=== PATIENT | female | born 1995 | race Caucasian/White ===

== ENCOUNTER 2016-09-12 20:42 | Emergency (ER) | payer SELFPAY ==
[~2016-09-12] VITALS: Ht 162.6 cm; Wt 47.0 kg
[2016-09-12 20:44] VITALS: BP 135/86; PULSE 80; RESP 16; TEMP 97.2; O2SAT 98
--- NOTE | 2016-09-12 21:26 | PD ---
HPI Chief Complaint: Pain: Acute or Chronic Time Seen by Provider: 21:23 Travel History International Travel<30 days: No Contact w/Intl Traveler<30days: No Traveled to known affect area: No History of Present Illness HPI 21-year-old female presents to emergency department with complains of right sided rib pain. She states that her right ribs keep popping out of place now for the past 4 years. She states that she has chronic right rib pain. She states that her ribs have been out of place for months to years. She states that her pain is gotten worse in the last week or so. She does not have a doctor that she follows up with. She denies any fever chills. Pain is worse with taking a deep breath or cough. PFSH Past Medical History Asthma: Yes Diminished Hearing: No Immunizations Current: Yes Tetanus Vaccination: < 5 Years ?: Not LMP: 09/03/2016 : 1 Para: 0 Miscarriage: 0 : 0 Past Surgical History Surgical History: No Previous Surgery Social History Alcohol Use: No Tobacco Use: No Substance Use: No Allergies-Medications (Allergen,Severity, Reaction): Coded Allergies: Benadryl (Verified Allergy, Severe, HIVES, 09/12/16) Uncoded Allergies: THERAFLU (Allergy, Intermediate, "WATER BUBBLES" ON SKIN, 09/12/16) Reported Meds & Prescriptions Reported Meds & Active Scripts Active No Active Prescriptions or Reported Medications Review of Systems Except as stated in HPI: all other systems reviewed are Neg General / Constitutional: No: Fever, Chills Eyes: Positive: Blurred Vision, No: Pain HENT: Positive: Headaches, Earache Cardiovascular: Positive: Chest Pain or Discomfort, No: Tachycardia Respiratory: Positive: Pleuritic Pain, No: Cough, Shortness of Breath Gastrointestinal: No: Nausea, Vomiting Genitourinary: No: Dysuria, Hematuria Musculoskeletal: Positive: Pain, No: Edema Skin: No Rash, No Itching Physical Exam Narrative GENERAL: Well-developed, well-nourished in no acute distress. Nontoxic appearing. HEAD: Normocephalic, atraumatic. EYES: Pupils equal round and reactive. Extraocular motions intact. No scleral icterus. No injection or drainage. ENT: TMs clear without erythema. The external auditory canals clear. Nose: clear . Posterior pharynx is pink and moist. No tonsillar edema or exudate. Uvula midline. Airway patent. NECK: Trachea midline.Supple, nontender, moves head freely. No central bony tenderness or spasm. CARDIOVASCULAR: Regular rate and rhythm without murmurs, gallops, or rubs. CHEST: Tender right anterior lower axillary ribs without deformity or crepitance. No retractions or use of accessory muscles. RESPIRATORY: Clear to auscultation. Breath sounds equal bilaterally. No wheezes , rales, or rhonchi. GASTROINTESTINAL: Abdomen soft, non-tender, nondistended. No hepato-splenomegaly , or palpable masses. No guarding. EXTREMITIES: No clubbing, cyanosis, or edema. No joint tenderness, effusion, or edema noted. BACK: Nontender without deformity or crepitance. No flank tenderness. Data Data Last Documented VS Vital Signs Date Time Temp Pulse Resp B/P Pulse Ox O2 Delivery O2 Flow Rate FiO2 09/12/16 20:44 97.2 80 16 135/86 98 Room Air Orders Ribs, Uni (W/Exp Cxr-Min 3vw) (09/12/16 21:22) [facility] Medical Decision Making Medical Screen Exam Complete: Yes Emergency Medical Condition: Yes Medical Record Reviewed: Yes Interpretation(s) Last 24 hours Impressions Ribs X-Ray 09/12/162121 Signed Impressions: Service Date/Time: Monday, September 12, 2016 22:01 - CONCLUSION: No acute disease. Judson Johnson MD Right RIBS: Negative for fracture. No obvious deformity. No acute bony process. Differential Diagnosis MDM: High Differential diagnoses: Fracture, sprain, strain, dislocation, contusion, neurovascular injury, pneumothorax Narrative Course X-rays are negative for bony injury. Patient is given Motrin 600 mg and Lortab 5 a grams by mouth. Diagnosis Primary Impression: chronic right rib pain Patient Instructions: General Instructions Additional Instructions: Rest. Increase fluids. Diclofenac and Flexeril. Follow-up with a medical doctor within one week. Return to the ER for emergencies. Med/Other Pt SpecificInfo: Prescription(s) given Scripts No Active Prescriptions or Reported Meds Disposition: DISCHARGE HOME Condition: Stable Mauricio Ferris Sep 12, 2016 21:26
--- NOTE | 2016-09-12 22:06 | RADRPT ---
EXAM DATE/TIME: 09/12/2016 22:01 [facility] COMPARISON: No previous studies available for comparison. INDICATIONS : Right rib pain for 4 years. Patient stated she feels like her ribs come out of alignment when she sn eezes or coughs. MEDICAL HISTORY : None. SURGICAL HISTORY : None. ENCOUNTER: Initial ACUITY: >1 year PAIN SCORE: 7/10 LOCATION: Right posterior ribs. FINDINGS: Multiple views of the right ribs were performed. There is no evidence of displaced fracture. No connie tructive lesions or areas of periosteal thickening are seen. Expiratory view of the chest is negativ e for pneumothorax. The mediastinal structures are midline. CONCLUSION: No acute disease. Judson Johnson MD on September 12, 2016 at 22:04 Board Certified Radiologist. This report was verified electronically.
[2016-09-12] MEDS ORDERED: ACETAMINOPHEN/HYDROcodone 325 MG/5 MG TAB PO ONE (23:15)
[2016-09-12] MEDS ORDERED: DICL75TA PO (23:15)
[2016-09-12] MEDS ORDERED: IBUPROFEN 600 MG TAB PO ONE (23:15)
[2016-09-12] MEDS ORDERED: CYCL1TAB29 PO (23:15)
[2016-09-12 23:23] VITALS: BP 101/63; TEMP 98.2
== END 2016-09-12 23:23 | disposition home or self-care (01) ==
LOC: NEPB 20:42
DX: R07.81 Pleurodynia (principal); G89.29 Other chronic pain; Z87.09 Personal history of other diseases of the respiratory system
CPT/HCPCS: 71101; 99283